=== PATIENT | female | born 1935 | race Caucasian/White ===

== ENCOUNTER 2017-09-12 08:00 | Emergency (ER) | payer BC ==
[~2017-09-12] VITALS: Ht 167.6 cm; Wt 77.1 kg
[~2017-09-12 08:00] MED LIST: FLUZONE; LOVA20TA4; LOVA20TA4 OR
[2017-09-12 08:07] VITALS: BP 144/80
[2017-09-12] MEDS ORDERED: KETOROLAC TROMETH 30 MG/ML 1ML VIAL IM ONE (08:45)
== END 2017-09-12 10:00 | disposition home or self-care (01) ==
LOC: ER 08:00
DX: S52.201A Unspecified fracture of shaft of right ulna, initial encounter for closed fracture (principal); E78.00 Pure hypercholesterolemia, unspecified; Z90.89 Acquired absence of other organs; Z90.49 Acquired absence of other specified parts of digestive tract; Z88.5 Allergy status to narcotic agent; Z88.1 Allergy status to other antibiotic agents; Z88.8 Allergy status to other drugs, medicaments and biological substances; Z79.899 Other long term (current) drug therapy; X50.1XXA Overexertion from prolonged static or awkward postures, initial encounter; Y93.89 Activity, other specified; Y99.8 Other external cause status; Y92.89 Other specified places as the place of occurrence of the external cause
CPT/HCPCS: 29125; 73090; 73130; 96372; 99284; J1885

== ENCOUNTER → 2017-12-27 | Outpatient (CLI) | payer BC ==
[2017-12-27 13:29] LABS: Basophils # (auto) 0 uL; Basophils % (auto) 0.7 % (0.0-2.0); Eosinophils # (auto) 0.1 uL; Eosinophils % (auto) 2.4 % (0.0-7.0); Hematocrit 42.3 % (36.0-46.0); Hemoglobin 14.1 g/dL (12.2-16.2); Lymphocytes # (auto) 1.6 uL; Lymphocytes % (auto) 26.6 % (10.0-50.0); Mean Corpuscular Hemoglobin 31.2 pg (28.0-32.0); Mean Corpuscular Hgb Conc. 33.2 g/dL (32.0-36.0); Mean Corpuscular Volume 93.9 fL (80.0-100.0); Monocytes # (auto) 0.3 uL; Monocytes % (auto) 5.5 % (0.0-12.0); Neutrophils # (auto) 3.9 uL; Neutrophils % (auto) 64.8 % (37.0-80.0); Platelet Count (auto) 142 10^3/uL (140-450); Red Blood Cells 4.51 10^6/uL (4.0-5.20); Red Cell Distribution Width 13.5 % (11.8-14.3)
[2017-12-27 14:21] LABS: BUN/Creatinine Ratio 11.6; Bilirubin, Total 1.1 mg/dL (0.2-1.0); Potassium 3.9 mmol/L (3.5-5.1)
== END | disposition home or self-care (01) ==
LOC: LAB 13:11
PROVIDERS: ATTEND Internal Medicine
DX: E11.9 Type 2 diabetes mellitus without complications (principal); D69.3 Immune thrombocytopenic purpura; E78.00 Pure hypercholesterolemia, unspecified; Z79.899 Other long term (current) drug therapy
CPT/HCPCS: 36415; 80053; 83036; 85025

== ENCOUNTER → 2019-03-20 | Outpatient (CLI) | payer BC ==
[2019-03-20 10:05] LABS: Basophils # (auto) 0 uL; Basophils % (auto) 0.6 % (0.0-2.0); Eosinophils # (auto) 0.2 uL; Eosinophils % (auto) 3.3 % (0.0-7.0); Hematocrit 41.1 % (36.0-46.0); Hemoglobin 13.9 g/dL (12.2-16.2); Lymphocytes # (auto) 1.8 uL; Lymphocytes % (auto) 37.4 % (10.0-50.0); Mean Corpuscular Hgb Conc. 33.8 g/dL (32.0-36.0); Mean Corpuscular Volume 94.7 fL (80.0-100.0); Monocytes # (auto) 0.3 uL; Monocytes % (auto) 5.9 % (0.0-12.0); Neutrophils # (auto) 2.6 uL; Neutrophils % (auto) 52.8 % (37.0-80.0); Nucleated Red Blood Cells % 0.1 %; Platelet Count (auto) 139 10^3/uL (140-450); Red Blood Cells 4.34 10^6/uL (4.0-5.20); Red Cell Distribution Width 13.7 % (11.8-14.3); White Blood Cell 4.9 10^3/uL (4.4-10.8)
[2019-03-20 10:45] LABS: Albumin 3.8 g/dL (3.4-5.0); Calcium 9.4 mg/dL (8.5-10.1); Potassium 4.2 mmol/L (3.5-5.1)
[2019-03-20 10:52] LABS: BUN/Creatinine Ratio 12.1; Bilirubin, Total 0.7 mg/dL (0.2-1.0); Total Protein 7.1 g/dL (6.4-8.2)
[2019-03-20 10:54] LABS: Urine Bacteria NONE SEEN /hpf (None Seen); Urine Blood Negative /uL (Negative); Urine Specific Gravity 1.011 (1.001-1.035); Urine WBC 1 /hpf (0 - 5)
[2019-03-20 11:11] LABS: Free T4 (Free Thyroxine) 0.81 ng/dL (0.89-1.76)
== END | disposition home or self-care (01) ==
LOC: LAB 09:39
PROVIDERS: ATTEND Internal Medicine
DX: E11.42 Type 2 diabetes mellitus with diabetic polyneuropathy (principal); Z86.73 Personal history of transient ischemic attack (TIA), and cerebral infarction without residual deficits
CPT/HCPCS: 36415; 80053; 80061; 81001; 82043; 82607; 83036; 84439; 84443; 85025; 85652

== ENCOUNTER → 2020-09-25 | Outpatient (CLI) | payer BC | END | disposition home or self-care (01) | LOC: XYW 11:03 | PROVIDERS: ATTEND Internal Medicine | DX: M51.37 Other intervertebral disc degeneration, lumbosacral region (principal); M48.07 Spinal stenosis, lumbosacral region; M47.817 Spondylosis without myelopathy or radiculopathy, lumbosacral region; M43.17 Spondylolisthesis, lumbosacral region; M54.5 Low back pain; M25.78 Osteophyte, vertebrae; M71.38 Other bursal cyst, other site; M51.35 Other intervertebral disc degeneration, thoracolumbar region; M47.815 Spondylosis without myelopathy or radiculopathy, thoracolumbar region; N28.1 Cyst of kidney, acquired; G95.81 Conus medullaris syndrome | CPT/HCPCS: 72148 ==

== ENCOUNTER 2020-10-19 15:35 | Emergency (ER) | payer BC ==
[~2020-10-19] VITALS: Ht 167.6 cm; Wt 72.6 kg
[2020-10-19 15:35] VITALS: BP 145/83
== END 2020-10-19 17:27 | disposition home or self-care (01) ==
LOC: ER 15:35
DX: S00.11XA Contusion of right eyelid and periocular area, initial encounter (principal); R51.9 Headache, unspecified; M79.10 Myalgia, unspecified site; Z88.1 Allergy status to other antibiotic agents; Z88.5 Allergy status to narcotic agent; X58.XXXA Exposure to other specified factors, initial encounter; Y93.89 Activity, other specified; Y92.89 Other specified places as the place of occurrence of the external cause; Y99.8 Other external cause status
CPT/HCPCS: 70450; 70486; 72125

== ENCOUNTER 2024-07-30 19:45 | Emergency (ER) | payer BC, OTHER ==
[~2024-07-30] VITALS: Ht 167.6 cm; Wt 73.6 kg
[~2024-07-30 19:45] MED LIST changes: +CLOP75TA28
[2024-07-30] MEDS: ERYTHROMY OPTH OINT 5mg/gm 1gm or 3.5gm tube OP ONE (20:45)
[2024-07-30] MEDS ORDERED: ERY05OO OP (21:09)
--- NOTE | 2024-07-30 21:09 | ED.PDOC ---
Eye-HPI HPI Comments 88-year-old female presents to ER with bilateral eye complaint x1 day. Patient presents via EMS, reporting that she started experiencing yellow purulent drainage from bilateral eyes, mild swelling to bilateral eyelids and 5/10 burning sensation to bilateral eyes this afternoon. She denies any trauma/injury. Reports that her also expressed started experiencing similar symptoms today and presents to ER in no distress. Denies fever, vision changes, use of contacts, trauma/injury, foreign body sensation, headache or any further symptoms/complaints Chief Complaint: Eye Problem Time Seen by MD: 20:25 Primary Care Provider: JOHANA Reviewed Notes: Nurses Notes, Medications, Allergies Allergies: Coded Allergies: Meperidine (Verified Allergy, Intermediate, 07/31/12) Tetracycline (Verified Allergy, Intermediate, 04/19/11) Codeine (Unverified Adverse Reaction, Unknown, 09/12/17) ABDOMINAL PAIN Home Meds Active Scripts Erythromycin (Erythromycin) 5 Mg/Gm Oin, 1 MG OP 6XD for 7 Days, #1 OIN 0 Refills Prov:PAM WEINER 07/30/24 Reported Medications Clopidogrel Bisulfate (Plavix) 75 Mg Tab, DAILY 10/17/12 Lovastatin (Lovastatin) 20 Mg Tab, DAILY 10/17/12 [Fluzone [id number] Syringe] No Conflict Check 07/31/12 [[id number] Mg] (Lovastatin) 20 MG TAB No Conflict Check, MG 07/31/12 Lovastatin (Lovastatin) 20 Mg Tab, 20 MG OR DA 04/19/11 Information Source: Patient Mode of Arrival: EMS Past Medical History PAST MEDICAL HISTORY: High Lipids, TIA Surgical History: Appendectomy, Tonsillectomy 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 History Family History Family History: Unknown Social History Smoker: Non-Smoker Alcohol: Denies ETOH Use Drugs: Denies Drug Use Lives In: Home Constitutional: denies: chills, diaphoresis, fatigue, fever, malaise, sweats, weakness, others EENTM: reports: others (As stated in HPI) Respiratory: denies: cough, hemoptysis, orthopnea, SOB at rest, shortness of breath, SOB with excertion, stridor, wheezing, others Cardiovascular: denies: chest pain, dizzy spells, diaphoresis, Dyspnea on exertion, edema, irregular heart beat, left arm pain, lightheadedness, palpitations, PND, syncope, others Gastrointestinal: denies: abdomen distended, abdominal pain, blood streaked bowels, constipated, diarrhea, dysphagia, difficulty swallowing, hematemesis, melena, nausea, poor appetite, poor fluid intake, rectal bleeding, rectal pain, vomiting, others Genitourinary: denies: abnormal vagina bleeding, burning, dyspareunia, dysuria, flank pain, frequency, hematuria, incontinence, pain, , vagina discharge, urgency, others Neurological: denies: dizziness, fainting, headache, left sided numbness, left sided weakness, numbness, paresthesia, pre-existing deficit, right sided numbness, right sided weakness, seizure, speech problems, tingling, tremors, weakness, others Musculoskeletal: denies: back pain, gout, joint pain, joint swelling, muscle pain, muscle stiffness, neck pain, others Integumetry: reports: others (As stated in HPI) Allergic/Immunocompromised: denies: Difficulty Healing, Frequent Infections, Hives, Itching, others Hematologic/Lymphatic: denies: anemia, blood clots, easy bleeding, easy bruising, swollen glands, others Endocrine: denies: excessive hunger, excessive sweating, excessive thirst, excessive urination, flushing, intolerance to cold, intolerance to heat, une xplained weight gain, unexplained weight loss, others Psychiatric: denies: anxiety, bipolar disorder, depression, hopeless, panic disorder, schizophrenia, sleepless, suicidal, others Physical Exam General Appearance: No Apparent Distress HEENT: PERRL/EOMI, Pharynx Normal, TMs Normal, Other (Mild yellow mucopurulent drainage and subconjunctival injection noted to bilateral eyes. Mild swelling also noted to bilateral upper eyelids, no further skin changes noted, no foreign body appreciated.) Neck: Full Range of Motion, Non-Tender, Normal Respiratory: Chest Non-Tender, Lungs Clear, No Accessory Muscle Use, No Respiratory Distress, Normal Breath Sounds Cardiovascular: No Murmur, No Gallop, Regular Rate/Rhythm Breast Exam: Deferred Gastrointestinal: NOT DONE Genitalia: Deferred Pelvic: Deferred Rectal: Deferred Extremities: Normal capillary refill, Normal range of motion Neurologic: Alert, cigarette making examiner II-XII nml as Tested, No Motor Deficits, Normal Affect, Normal Mood, No Sensory Deficits Cerebellar Function: Normal Reflexes: Normal Skin: Dry, Normal Color, Warm Lymphatic: No Adenopathy Was a procedure done? Was a procedure done?: No Sedation Sedation?: No EENT DIFF Eye: Corneal Abrasion, Foreign Body-Corneal, Orbital Cellulits, Periorbital Cellulits X-Ray, Labs, Meds, VS Vital Signs Date Time Temp Pulse Resp B/P (MAP) Pulse Ox O2 Delivery O2 Flow Rate FiO2 07/30/24 20:38 96 Room Air 0 07/30/24 19:52 98.4 94 16 154/82 (106) 96 Bilateral eyes were cleansed at bedside using warm compresses Erythromycin ointment ordered and applied by nurse Advised to apply warm or cool compresses for comfort and cleansing every 4 hours as needed Importance of good hand hygiene discussed and advised Advised to follow up with Ophthalmology in 3-4 days if symptoms do not improve Advised to follow up with PCP in 1-2 days Patient verbalized understanding and agreeable with current plan of care Advised to return to ER immediately if symptoms worsen Time of 1ST Reevaluation: 20:44 Reevaluation 1ST: N/A Patient Education/Counseling: Diagnosis, Treatment, Prognosis, Need For Follow Up Family Education/Counseling: No Family Present Departure 1 Departure Time of Disposition: 21:02 Impression: Primary Impression: Bacterial conjunctivitis Disposition: 01 HOME / SELF CARE / HOMELESS Condition: Stable e-Prescriptions Erythromycin (Erythromycin) 5 Mg/Gm Oin 1 MG OP 6XD for 7 Days, #1 OIN 0 Refills Prov: PAM WEINER 07/30/24 Discharged With: Friend Critical Care Note Critical Care Time?: No Stability Stability form required: No Heart Score Heart Score: Heart Score Response (Comments) Value History N/A 0 EKG N/A 0 Age N/A 0 Risk Factors N/A 0 Troponin N/A 0 Total 0 PAM WEINER Jul 30, 2024 21:09
[2024-07-30 22:10] VITALS: BP 151/59; PULSE 94; RESP 18; TEMP 98.5; O2SAT 94
== END 2024-07-30 22:27 | disposition home or self-care (01) ==
LOC: ER 19:45 → EDBD 19:45 → ER 22:25
DX: H10.89 Other conjunctivitis (principal); Z79.02 Long term (current) use of antithrombotics/antiplatelets; Z86.73 Personal history of transient ischemic attack (TIA), and cerebral infarction without residual deficits; Z88.1 Allergy status to other antibiotic agents; Z88.5 Allergy status to narcotic agent; Z90.49 Acquired absence of other specified parts of digestive tract; Z90.89 Acquired absence of other organs